=== PATIENT | female | born 1975 | race Caucasian/White ===

== ENCOUNTER 2018-05-12 07:28 | Outpatient (CLI) | payer BC ==
[2018-05-12 11:35] LABS: BASOPHILS % (AUTO) 0.7 %; EOSINOPHILS # (AUTO) 0.1 10^3/uL (0.0-0.7); EOSINOPHILS % (AUTO) 3.4 %; HGB - HEMOGLOBIN 12.7 g/dL (12.0-16.0); LYMPHOCYTES # (AUTO) 0.8 10^3/uL (1.5-3.5); LYMPHOCYTES % (AUTO) 20.1 %; MEAN CORPUSCULAR HEMOGLOBIN 30.1 pg (27.0-31.0); MEAN CORPUSCULAR HGB CONC 33.6 g/dL (32.0-36.0); MEAN CORPUSCULAR VOLUME 89.4 fL (81.0-99.0); MEAN PLATELET VOLUME 7.8 fL (7.9-10.8); MONOCYTES # (AUTO) 0.3 10^3/uL (0.0-1.0); MONOCYTES % (AUTO) 6.6 %; NEUTROPHILS # (AUTO) 2.8 10^3/uL (1.5-6.6); NEUTROPHILS % (AUTO) 69.2 %; PLT - PLATELET COUNT 223 10^3/uL (130-450); RED BLOOD COUNT 4.22 10^6/uL (4.20-5.40); RED CELL DISTRIBUTION WIDTH 12.8 % (12.0-15.0); WHITE BLOOD COUNT 4.1 x10^3/uL (4.8-10.8)
[2018-05-12 11:56] LABS: ALBUMIN 3.9 g/dL (3.2-5.5); ALBUMIN/GLOBULIN RATIO 1.4 (1.0-2.2); ALKALINE PHOSPHATASE 25 IU/L (42-121); ALT ALANINE AMINOTRANSFERASE 20 IU/L (10-60); AST ASPARTATE AMINOTRANSFERASE 29 IU/L (10-42); BUN - BLOOD UREA NITROGEN 14 mg/dL (6-20); CALCIUM 8.9 mg/dL (8.5-10.3); CARBON DIOXIDE - CO2 27 mmol/L (21-32); CHLORIDE 103 mmol/L (101-111); CHOL/HDL RATIO 3.2 (<4.4); CHOLESTEROL 197 mg/dL; CREATININE 0.6 mg/dL (0.4-1.0); GFR - MDRD 110 (>89); GLUCOSE 83 mg/dL (70-100); HDL CHOLESTEROL 61 mg/dL; LDL CHOLESTEROL,CALCULATED 126 mg/dL; LDL/HDL RATIO 2.1 (<4.4); SODIUM 136 mmol/L (135-145); TOTAL PROTEIN 6.6 g/dL (6.7-8.2); VLDL CHOLESTEROL 10 mg/dL
[2018-05-12 12:30] LABS: CRP - C-REACTIVE PROTEIN < 1.0 mg/dL (0-1.0)
== END 2018-05-12 07:29 | disposition home or self-care (01) ==
LOC: LAB.F 07:28
DX: K59.00 Constipation, unspecified (principal); Z85.3 Personal history of malignant neoplasm of breast; R14.0 Abdominal distension (gaseous); M54.32 Sciatica, left side; I49.8 Other specified cardiac arrhythmias
CPT/HCPCS: 36415; 80053; 80061; 83721; 85025; 85651; 86140; 86430

== ENCOUNTER 2018-05-13 14:03 | Outpatient (CLI) | payer BC | END 2018-05-13 14:04 | disposition home or self-care (01) | LOC: LAB.F 14:03 | PROVIDERS: ATTEND Naturopath | DX: K59.00 Constipation, unspecified (principal); Z85.3 Personal history of malignant neoplasm of breast; R14.0 Abdominal distension (gaseous); M54.32 Sciatica, left side; I49.8 Other specified cardiac arrhythmias | CPT/HCPCS: 81599; 86431 ==

== ENCOUNTER 2019-10-27 15:41 | Outpatient (CLI) | payer OTHER ==
[2019-10-27 19:49] LABS: BASOPHILS # (AUTO) 0.1 10^3/uL (0.0-0.1); BASOPHILS % (AUTO) 0.7 %; EOSINOPHILS # (AUTO) 0.1 10^3/uL (0.0-0.7); EOSINOPHILS % (AUTO) 1.6 %; HGB - HEMOGLOBIN 13.9 g/dL (12.0-16.0); LYMPHOCYTES # (AUTO) 1.1 10^3/uL (1.5-3.5); LYMPHOCYTES % (AUTO) 16.1 %; MEAN CORPUSCULAR HEMOGLOBIN 29.4 pg (27.0-31.0); MEAN CORPUSCULAR HGB CONC 32.5 g/dL (32.0-36.0); MEAN CORPUSCULAR VOLUME 90.5 fL (81.0-99.0); MEAN PLATELET VOLUME 10.2 fL (7.9-10.8); MONOCYTES # (AUTO) 0.6 10^3/uL (0.0-1.0); PLT - PLATELET COUNT 253 10^3/uL (130-450); RED BLOOD COUNT 4.73 10^6/uL (4.20-5.40); RED CELL DISTRIBUTION WIDTH 12.9 % (12.0-15.0); WHITE BLOOD COUNT 6.9 x10^3/uL (4.8-10.8)
[2019-10-27 19:59] LABS: ALBUMIN 4.2 g/dL (3.2-5.5); ALBUMIN/GLOBULIN RATIO 1.4 (1.0-2.2); BILIRUBIN,TOTAL 0.6 mg/dL (0.2-1.0); CALCIUM 9.9 mg/dL (8.5-10.3); CREATININE 0.6 mg/dL (0.4-1.0); TOTAL PROTEIN 7.1 g/dL (6.7-8.2)
[2019-10-27 20:16] LABS: CORTISOL 7.7 ug/dL
[2019-10-27 20:17] LABS: THYROID STIMULATING HORMONE 2.6 uIU/mL (0.34-5.60)
[2019-10-27 20:19] LABS: FREE T4 (FREE THYROXINE) 0.88 ng/dL (0.58-1.64)
[2019-10-27 20:20] LABS: FREE T3 2.92 pg/mL (2.5-3.9)
[2019-10-27 20:28] LABS: FOLATE 15.85 ng/mL (5.90 - >24.8)
[2019-10-27 20:45] LABS: FOLLICLE STIMULATING HORMONE 51.5 mIU/mL
== END 2019-10-27 15:42 | disposition home or self-care (01) ==
LOC: LAB.S 15:41
PROVIDERS: ATTEND Naturopath
DX: E03.9 Hypothyroidism, unspecified (principal); R53.83 Other fatigue; N95.1 Menopausal and female climacteric states
CPT/HCPCS: 36415; 80053; 82533; 82607; 82627; 82746; 83001; 84439; 84443; 84481; 85025; 86376; 86800

== ENCOUNTER 2021-06-03 13:52 | Outpatient (CLI) | payer BC | END 2021-06-03 13:53 | disposition home or self-care (01) | LOC: NS 13:52 | PROVIDERS: ATTEND Physician Assistant | DX: Z71.3 Dietary counseling and surveillance (principal); E66.9 Obesity, unspecified; Z68.35 Body mass index [BMI] 35.0-35.9, adult | CPT/HCPCS: 97802 ==

== ENCOUNTER 2021-11-13 08:03 | Outpatient (CLI) | payer BC ==
--- NOTE | 2021-11-13 12:54 | Ultrasound Report ---
PROCEDURE: Abdomen Complete INDICATIONS: LOW AMYLASE AND ALK PHOS LEVELS, CA HIST TECHNIQUE: Real-time scanning was performed of the abdominal and retroperitoneal organs, with image documentatio n. COMPARISON: None. FINDINGS: Liver: Liver is normal in size and mildly diffusely increased in echogenicity. Hepatopetal flow is seen in the main portal vein. Gallbladder: Status post cholecystectomy. Biliary ducts: Intrahepatic bile ducts are non-dilated. Extrahepatic bile duct caliber measures 3 m m. Normal is 6-7 mm or less in diameter, or 10 mm or less post-cholecystectomy. Pancreas: Visualized portions of the pancreas are sonographically normal. Spleen: Spleen is normal in size and homogeneous in echotexture. Kidneys: Kidneys are normal in size and echotexture. Right kidney measures 10.7 cm long; left kidne y measures 10.9 cm long. No hydronephrosis or nephrolithiasis. No solid masses. Aorta: Visualized aorta is normal in caliber at less than 3 cm. Iliacs: Proximal common iliac arteries are normal in caliber at less than 2.5 cm. IVC: Intrahepatic inferior vena cava is patent. Miscellaneous: No free abdominal fluid. IMPRESSION: Diffusely mildly increased hepatic echogenicity is nonspecific, but most commonly encountered in the setting of hepatic steatosis. However, other causes of hepatocellular disease are not excluded. Recom mend clinical correlation. Reviewed by: Rajat Manzano MD on 11/13/2021 12:53 PM PDT Approved by: Rajat Manzano MD on 11/13/2021 12:53 PM PDT Station ID: [id number]
== END 2021-11-13 08:04 | disposition home or self-care (01) ==
LOC: DI 08:03
PROVIDERS: ATTEND Naturopath
DX: R93.2 Abnormal findings on diagnostic imaging of liver and biliary tract (principal); F50.81 Binge eating disorder; E83.39 Other disorders of phosphorus metabolism; Z85.9 Personal history of malignant neoplasm, unspecified
CPT/HCPCS: 36415; 80053; 82150; 83690; 84100

== ENCOUNTER 2021-11-13 09:12 | Outpatient (CLI) | payer BC ==
[2021-11-13 09:39] LABS: ALBUMIN/GLOBULIN RATIO 1.4 (1.0-2.2); BILIRUBIN,TOTAL 0.5 mg/dL (0.2-1.0); CALCIUM 9.3 mg/dL (8.5-10.3); CREATININE 0.6 mg/dL (0.4-1.0); PHOSPHORUS 3.3 mg/dL (2.5-4.6); POTASSIUM 3.8 mmol/L (3.5-5.0); TOTAL PROTEIN 6.9 g/dL (6.7-8.2)
== END 2021-11-13 09:13 | disposition home or self-care (01) ==
LOC: LAB 09:12
PROVIDERS: ATTEND Naturopath
DX: F50.81 Binge eating disorder (principal); E83.39 Other disorders of phosphorus metabolism; R74.8 Abnormal levels of other serum enzymes
CPT/HCPCS: 36415; 80053; 82150; 83690; 84100

== ENCOUNTER 2021-12-02 12:55 | Outpatient (CLI) | payer BC | END 2021-12-02 12:56 | disposition home or self-care (01) | LOC: RT 12:55 | PROVIDERS: ATTEND Naturopath | DX: E83.39 Other disorders of phosphorus metabolism (principal); F50.9 Eating disorder, unspecified | CPT/HCPCS: 93005 ==

== ENCOUNTER 2022-05-06 07:48 | Outpatient (CLI) | payer BC ==
--- NOTE | 2022-05-06 13:57 | Ultrasound Report ---
PROCEDURE: Abdomen Complete INDICATIONS: ELEVATED LFTS, HX OF ANOREXIA NERVOSA TECHNIQUE: Real-time scanning was performed of the abdominal and retroperitoneal organs, with image documentatio n. COMPARISON: None. FINDINGS: Liver: Increased hepatic parenchymal echogenicity and coarsened hepatic echotexture. No focal hepatic mass. Gallbladder: Cholecystectomy. Biliary ducts: Normal diameter. Pancreas: Visualized portions of the pancreas are sonographically no rmal. Spleen: Spleen is normal in size and homogeneous in echotexture. Kidneys: Normal. Aorta: Visualized aorta is normal in caliber at less than 3 cm. Iliacs: Proximal common iliac arteries are normal in caliber at less than 2.5 cm. IVC: Intrahepatic inferior vena cava is patent. Miscellaneous: No free abdominal fluid. IMPRESSION: Hepatic steatosis and probable steatohepatitis. Reviewed by: Bridger Pereira MD on 05/06/2022 1:56 PM PDT Approved by: Bridger Pereira MD on 05/06/2022 1:56 PM PDT Station ID: [id number]
== END 2022-05-06 07:49 | disposition home or self-care (01) ==
LOC: DI 07:48
PROVIDERS: ATTEND Naturopath
DX: K76.0 Fatty (change of) liver, not elsewhere classified (principal)

== ENCOUNTER 2022-12-26 11:17 | Outpatient (CLI) | payer BC ==
--- NOTE | 2022-12-27 14:53 | Ultrasound Report ---
PROCEDURE: Pelvic w/Transvaginal INDICATIONS: POSTMENOPAUSAL BLEEDING TECHNIQUE: Real-time scanning was performed of the pelvic organs, with image documentation. Additional endovagi nal scanning was necessary due to incomplete visualization of the adnexal and endometrial structures by transabdominal scanning. COMPARISON: None. FINDINGS: Uterus: Uterus is anteverted and normal in size at 6.3 x 2.7 x 3.8 cm. The myometrium is heterogene ous. The endometrium measures 3 mm in combined thickness. There is a focal 3 mm soft tissue nodule within the lower uterine segment surrounded by trace fluid. Ovaries: Surgically absent. Other: No pathologic free abdominal or pelvic fluid. IMPRESSION: 1. Questionable 3 mm endometrial polyp within the lower uterine segment. If further characterization is warranted, history of sonogram could be used. 2. No abnormal thickening of the endometrium. Reviewed by: Nilsa Lomax MD on 12/27/2022 2:52 PM PST Approved by: Nilsa Lomax MD on 12/27/2022 2:52 PM PST Station ID: [id number]
== END 2022-12-26 11:18 | disposition home or self-care (01) ==
LOC: DI 11:17
PROVIDERS: ATTEND Naturopath
DX: N95.0 Postmenopausal bleeding (principal)

== ENCOUNTER 2023-02-06 12:01 | Outpatient (CLI) | payer BC ==
--- NOTE | 2023-02-06 19:43 | XRAY Report ---
PROCEDURE: Knee 2 View LT INDICATIONS: L KNEE PAIN TECHNIQUE: 2 views of the knee were acquired. COMPARISON: None. FINDINGS: Bones: No acute fractures or dislocations. No suspicious bony lesions. Mild joint space narrowing of the medial femorotibial compartment. Soft tissues: No knee joint effusion. No suspicious soft tissue calcifications. IMPRESSION: Mild medial femorotibial compartment osteoarthrosis. No acute osseous abnormality. If symptoms persis t or there is continued clinical concern, further evaluation with MRI or CT may be helpful. Reviewed by: Rajat Manzano MD on 02/06/2023 7:42 PM PST Approved by: Rajat Manzano MD on 02/06/2023 7:42 PM PST Station ID: [id number]
--- NOTE | 2023-02-06 19:45 | XRAY Report ---
PROCEDURE: Cervical Spine 2 View INDICATIONS: L KNEE SHOULDER HIP PAIN, LOW BACK PAIN, PARAESTHI TECHNIQUE: 3 views of the cervical spine were acquired. COMPARISON: None. FINDINGS: Bones: No acute fractures or dislocations to the T1 level. The lateral masses of C1 appear intact o n the odontoid view. No suspicious bony lesions. Mild disc space narrowing is seen most prominently at C5-6. There is multilevel uncovertebral joint and facet hypertrophy. Soft tissues: No prevertebral soft tissue swelling. IMPRESSION: Mild multilevel spondylosis. Reviewed by: Rajat Manzano MD on 02/06/2023 7:43 PM PST Approved by: Rajat Manzano MD on 02/06/2023 7:43 PM PST Station ID: [id number]
--- NOTE | 2023-02-06 19:46 | XRAY Report ---
PROCEDURE: Shoulder 2 View LT INDICATIONS: L SHOULDER PAIN TECHNIQUE: 2 views of the shoulder were acquired. COMPARISON: None. FINDINGS: Bones: No acute fractures or dislocations. No suspicious bony lesions. Visualized ribs appear inta ct. Mild acromioclavicular joint osteoarthrosis. Soft tissues: No suspicious soft tissue calcifications. The visualized lungs are within normal limi ts. IMPRESSION: No acute bony abnormality. Mild acromioclavicular joint osteoarthrosis. Reviewed by: Rajat Manzano MD on 02/06/2023 7:45 PM PST Approved by: Rajat Manzano MD on 02/06/2023 7:45 PM PST Station ID: [id number]
--- NOTE | 2023-02-06 19:46 | XRAY Report ---
PROCEDURE: Hip w/Pelvis 2-3V LT INDICATIONS: L KNEE SHOULDER HIP PAIN, LOW BACK PAIN, PARAESTHI TECHNIQUE: AP pelvis with lateral view of the left hip. COMPARISON: None. FINDINGS: Bones: No acute fractures or dislocations. No suspicious bony lesions. No significant osteoarthro sis in the hips. Soft tissues: No suspicious soft tissue calcifications or masses. IMPRESSION: No acute bony abnormality. Reviewed by: Rajat Manzano MD on 02/06/2023 7:44 PM PST Approved by: Rajat Manzano MD on 02/06/2023 7:44 PM PST Station ID: [id number]
--- NOTE | 2023-02-06 19:48 | XRAY Report ---
PROCEDURE: Lumbar Spine 2 View INDICATIONS: LOW BACK PAIN TECHNIQUE: 3 views of the lumbar spine were acquired. COMPARISON: None. FINDINGS: Bones: 5 [id number] vertebrae are present. There is normal bony alignment. No vertebral body compression fractures. No suspicious bony lesions. Mild disc space narrowing seen at L5-S1. There i s mild multilevel facet hypertrophy. Soft tissues: Overlying bowel gas pattern is normal. No suspicious soft tissue calcifications. Rig ht upper quadrant cholecystectomy clips. IMPRESSION: Mild spondylosis. Reviewed by: Rajat Manzano MD on 02/06/2023 7:46 PM PST Approved by: Rajat Manzano MD on 02/06/2023 7:46 PM PST Station ID: [id number]
== END 2023-02-06 12:02 | disposition home or self-care (01) ==
LOC: DI 12:01
PROVIDERS: ATTEND Naturopath
DX: M17.12 Unilateral primary osteoarthritis, left knee (principal); M19.012 Primary osteoarthritis, left shoulder; M25.552 Pain in left hip; M47.812 Spondylosis without myelopathy or radiculopathy, cervical region; R20.2 Paresthesia of skin; M47.816 Spondylosis without myelopathy or radiculopathy, lumbar region